=== PATIENT | female | born 1995 | race Caucasian/White ===

== ENCOUNTER 2016-06-04 10:31 | Emergency (ER) | payer MEDICAID, OTHER ==
[~2016-06-04] VITALS: Wt 81.0 kg
[2016-06-04] MEDS ORDERED: AZIT250T94 PO (11:28)
[2016-06-04] MEDS ORDERED: NPH10OT LEFT EAR (11:28)
--- NOTE | 2016-06-04 11:35 | ERD ---
ER Documentation Chief Complaint Date/Time DATE: 06/04/16 TIME: 11:29 Chief Complaint LEFT EAR PAIN SINCE LAST NIGHT WITH COUGH. NO DRAINAGE NOTED HPI Patient is a 21-year-old female who presents to the ED with left ear pain since yesterday. She states that her ear hurts on the inside and outside and she feels "muffled." Denies fever, chills. Denies drainage or difficulty hearing. Denies headache or dizziness. She states that she had an ear infection on her right ear 2 months ago and was treated with drops. She states that she has a similar situation in her left ear today. She also complains of a productive cough that started yesterday. Denies runny nose. Denies chest pain, shortness of breath or difficulty breathing denies abdominal pain, nausea, vomiting or diarrhea. No other complaints. ROS All systems reviewed and are negative except as per history of present illness. Medications Home Meds Active Scripts Azithromycin* (Zithromax*) 250 Mg Tablet, 250 MG PO .ZPACK DIRECTED, #6 TAB TAKE 500 MG (2 TABS) THE FIRST DAY THEN 250 MG (1 TAB) DAYS 2-5 Prov:RULA WADSWORTH PA-C 06/04/16 Neomycin/Polymyxin/Hydrocort* (Cortisporin* Otic) 10 Ml Susp, 4 DROP LEFT EAR QID, #1 EA Prov:RULA WADSWORTH PA-C 06/04/16 Reported Medications [none] No Conflict Check 05/15/12 [None] No Conflict Check 03/30/12 Allergies Allergies: Uncoded Allergies: NONE (Allergy, 03/30/12) PMhx/Soc History of Surgery: No Anesthesia Reaction: No Hx Neurological Disorder: No Hx Respiratory Disorders: No Hx Cardiac Disorders: No Hx Psychiatric Problems: No Hx Miscellaneous Medical Probl: No Hx Alcohol Use: No Hx Substance Use: No Hx Tobacco Use: No FmHx Family History: No coronary disease, No diabetes, No other Physical Exam Vitals Vital Signs Date Time Temp Pulse Resp B/P Pulse Ox O2 Delivery O2 Flow Rate FiO2 06/04/16 10:33 99.2 80 18 114/65 98 Physical Exam GENERAL: Well-developed, well-nourished female. Appears in no acute distress. HEAD: Normocephalic, atraumatic. EYES: Pupils are equally reactive bilaterally. EOMs grossly intact. No conjunctival erythema. ENT: Moist mucous membranes. No uvula deviation. No kissing tonsils. No exudates. Left TM is erythematous and with an erythematous canal. Tenderness to Pinna and tragus. No mastoid tenderness. No drainage NECK: Supple. No lymphadenopathy or thyromegaly. No meningismus. negative kernig. negative brudinski. LUNG: Clear to auscultation bilaterally. No rhonchi, wheezing, rales or coarse breath sounds. HEART: Regular rate and rhythm. No murmurs, rubs or gallops. SKIN: Normal color. Warm and dry. No rashes or lesions. Capillary refill < 2 seconds Procedures/MDM ER COURSE: I kept the patient and/or family informed of laboratory and diagnostic imaging results throughout the emergency room course. MEDICAL DECISION MAKING: This is a 21-year-old female who presents with left ear pain 1 day. Vital signs were reviewed. Patient is afebrile. Patient is not hypoxic. Patient is not toxic or ill-appearing. Patient has otitis externa and otitis media. Low suspicion for malignant otitis externa, TM perforation, mastoiditis. Low suspicion for pneumonia, PE, pneumothorax, ACS, epiglottitis, obstruction, TB, pertussis, meningitis, sepsis. DISCHARGE: At this time, patient is stable for discharge and outpatient management with no new complaints during the ER course. Patient was sent home with Corticosporin otic, azithromycin and a note for work. Patient will be discharged home with instructions to recheck for new or worsening symptoms such as fever, nausea, weakness, LOC and to follow up with primary care in the next 1-2 days. Patient was advised to return to the ER for any new or worsening symptoms. Plan was discussed and patient and/or family understands and agrees. Home instructions were given. Departure Diagnosis: Primary Impression: Otitis externa Otitis externa type: unspecified type Laterality: left Chronicity: unspecified Qualified Code: H60.92 - Otitis externa of left ear, unspecified chronicity, unspecified type Additional Impression: Otitis media Otitis media type: unspecified Laterality: left Chronicity: unspecified Qualified Code: H66.92 - Left otitis media, unspecified chronicity, unspecified otitis media type Condition: Stable Patient Instructions: Otitis Media, Abx Tx (Adult), External Ear Infection ( Adult) Additional Instructions: Call your primary care doctor TOMORROW for an appointment during the next 1-2 days.See the doctor sooner or return here if your condition worsens before your appointment time. RULA WADSWORTH PA-C Jun 04, 2016 11:35
== END 2016-06-04 11:51 | disposition home or self-care (01) ==
LOC: FTE 10:31
DX: H60.92 Unspecified otitis externa, left ear (principal); H66.92 Otitis media, unspecified, left ear
CPT/HCPCS: 99283

== ENCOUNTER 2016-07-03 08:55 | Emergency (ER) | payer OTHER ==
[~2016-07-03] VITALS: Ht 160 cm; Wt 76.0 kg
[~2016-07-03 08:55] MED LIST: AZIT250T94 PO; NPH10OT LEFT EAR
[2016-07-03 08:56] VITALS: Ht 160 cm; Wt 76.0 kg
[2016-07-03] MEDS ORDERED: SULF3.5O15 BOTH EYES (09:18)
--- NOTE | 2016-07-03 10:32 | ERD ---
DATE OF SERVICE: HISTORY OF PRESENT ILLNESS: The patient is a 21-year-old female complaining of irritation to her ey es. She woke up this morning with her eyes glued shut and copious discharge. She does not wear con tacts or glasses, no sick contacts. 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 She does not have any pain with h er eye movements and does not feel her vision is affected. She washed her eyes out this morning wit h water. PAST MEDICAL HISTORY: Denies any other medical problems. ALLERGIES: DENIES ANY ALLERGIES TO MEDICATIONS. PAST SURGICAL HISTORY: Denies surgeries or hospitalizations. REVIEW OF SYSTEMS: A 12-point review of systems was done. Refer to HPI for positives, all other sy stems negative. PHYSICAL EXAMINATION VITAL SIGNS: Temperature is 97.8, pulse 83, blood pressure is 106/70, respiratory 18, O2 saturation 98% on room air. Pain intensity is 0/10. GENERAL: The patient is well-appearing, well-nourished, no acute distress. HEENT: Atraumatic. Conjunctivae are pink. Pupils equal, round, and reactive to light. There is no s cleral icterus. Tympanic membranes clear bilaterally. Oropharynx clear. No nystagmus or photophobia . The patient does have copious discharge noted around the eyes. CHEST: Clear to auscultation bilaterally. There are no rales, wheezes or rhonchi. HEART: Regular rate and rhythm. No murmurs, clicks, rubs or gallops. No S3 or S4. ABDOMEN: Soft, nontender and nondistended. Good bowel sounds. No rebound or guarding. No gross nisa tonitis. No gross organomegaly or masses. No Kerns sign or McBurney point tenderness. DIAGNOSIS: Bacterial conjunctivitis. MEDICAL DECISION MAKING: I have low suspicion for orbital cellulitis, low suspicion for retained fo reign body, low suspicion for visual deficit. DISCHARGE: The patient is discharged stable. The patient given a prescription for Bleph-10 and gisel d to follow up with primary care within 1 to 2 days for reevaluation. The patient was told if sympt oms progress or worsen to return to the ER. All other questions answered at time of discharge. Dis charge summary given at the time of departure. Patient understood and complied with plan. Dictated By: PUNEET GARCIA for CAS LUCAS/VICKI Conf#: [id number] DID#: [id number]
== END 2016-07-03 09:22 | disposition home or self-care (01) ==
LOC: FTE 08:55
DX: H10.9 Unspecified conjunctivitis (principal)
CPT/HCPCS: 99283

== ENCOUNTER 2017-11-30 15:30 | Emergency (ER) | END 2017-11-30 18:48 | disposition home or self-care (01) ==

== ENCOUNTER 2018-01-31 15:59 | Emergency (ER) | END 2018-01-31 18:07 | disposition home or self-care (01) ==

== ENCOUNTER 2018-02-09 20:45 | Emergency (ER) | END 2018-02-09 22:50 | disposition home or self-care (01) ==